=== PATIENT | female | born 1995 | race African-American/Black ===

== ENCOUNTER 2019-04-12 07:50 | Emergency (ER) | END 2019-04-12 08:06 | disposition left against medical advice (07) | LOC: ER 07:50 | DX: Z53.21 Procedure and treatment not carried out due to patient leaving prior to being seen by health care provider (principal); K08.89 Other specified disorders of teeth and supporting structures ==

== ENCOUNTER 2020-04-04 03:09 | Emergency (ER) | payer OTHER ==
[2020-04-04] MEDS ORDERED: DIPHENHYDRAMINE HCL 25 MG CAPSULE PO ONE (04:36)
[2020-04-04] MEDS ORDERED: FAMOTIDINE 20 MG TABLET PO ONE (04:36)
[2020-04-04] MEDS ORDERED: PREDNISONE 20 MG TABLET PO ONE (04:36)
--- NOTE | 2020-04-04 04:42 | ER Document Report ---
ED General - General Chief Complaint: Hives Stated Complaint: POSSIBLE ALLERGIC REACTION Time Seen by Provider: 04/04/20 04:25 Primary Care Provider: BRIANNE CORLEY MD [HONORARY] - Follow up as needed TRAVEL OUTSIDE OF THE [place] IN LAST 30 DAYS: No - HPI Context: This is a 24-year-old female presenting to the emergency department with a chief complaint of hives and urticaria. Patient states symptoms started approximately a day and a half ago after she applied a body lotion to her skin that was different from the one and she usually uses. Patient states she has been trying to manage symptoms with Benadryl cream without success. Patient states nothing alleviates the symptoms and nothing exacerbates the symptoms. Patient denies sensation of throat swelling or trouble breathing. Patient denies fever, chills, history of Covid infection, known exposure to Covid positive persons or known exposure to persons under investigation for COVID-19. Associated symptoms: Other - See HPI Exacerbated by: Other - See HPI Relieved by: Other - See HPI - Related Data Allergies/Adverse Reactions: No Known Allergies Allergy (Unverified 04/12/19 07:59) Past Medical History - General Information source: Patient - Social History Smoking Status: Never Smoker Family History: Reviewed & Not Pertinent Patient has suicidal ideation: No Patient has homicidal ideation: No Review of Systems - Review of Systems Constitutional: No symptoms reported EENT: No symptoms reported Cardiovascular: No symptoms reported Respiratory: No symptoms reported Gastrointestinal: No symptoms reported Genitourinary: No symptoms reported Female Genitourinary: No symptoms reported Musculoskeletal: No symptoms reported Skin: See HPI Hematologic/Lymphatic: No symptoms reported Neurological/Psychological: No symptoms reported -: Yes All other systems reviewed and negative Physical Exam - Vital signs Vitals: Temp Pulse Resp BP Pulse Ox 98.2 F 68 18 117/59 L 100 04/04/20 03:20 04/04/20 03:20 04/04/20 03:20 04/04/20 03:20 04/04/20 03:20 - Notes Notes: CONSTITUTIONAL [Vital signs reviewed, Patient appears comfortable, Alert and oriented X 3, Normal stature.] HEAD [Atraumatic, Normocephalic.] EYES [Eyes are normal to inspection, No discharge from eyes, Extraocular muscles intact, Sclera are normal, Conjunctiva are normal.] ENT [Ears normal to inspection, Nose examination normal, Posterior pharynx normal, Mouth normal to inspection. No stridor is present] NECK [Normal ROM, No jugular venous distention, No meningeal signs, no carotid bruit.] RESPIRATORY CHEST [Chest is nontender, Breath sounds normal, No respiratory distress.] CARDIOVASCULAR [RRR, No murmurs, Normal S1 S2, No rub, No gallop.] ABDOMEN [Abdomen is nontender, No pulsatile masses, No other masses, Bowel sounds normal, No distension, No peritoneal signs, No hernias.] BACK [There is no CVA Tenderness, There is no tenderness to palpation, Normal inspection.] UPPER EXTREMITY [Inspection normal, No cyanosis, No clubbing, No edema, 2+ radial pulses.] LOWER EXTREMITY [Inspection normal, No cyanosis, No clubbing, No edema, No calf tenderness, 2+ femoral pulses.] NEURO [No focal motor deficits, No focal sensory deficits, Speech normal.] SKIN [Skin is warm, Skin is dry, Skin is normal color.] PSYCHIATRIC [Normal affect. ] Course - Re-evaluation Re-evalutation: 04/04/20 04:41 Diagnosis, plan of care discussed with patient. All questions were answered prior to discharge. Emergency signs and symptoms, reasons to return to the emergency department discussed with patient. - Vital Signs Vital signs: Temp Pulse Resp BP Pulse Ox 98.2 F 68 18 117/59 L 100 04/04/20 03:20 04/04/20 03:20 04/04/20 03:20 04/04/20 03:20 04/04/20 03:20 Discharge - Discharge Clinical Impression: Acute allergic reaction Qualifiers: Encounter type: initial encounter Qualified Code(s): T78.40XA - Allergy, unspecified, initial encounter Condition: Stable Disposition: HOME, SELF-CARE Additional Instructions: Return to the Emergency Department without delay if any worse. You can nut picker some Benadryl tablets from your local grocery store pharmacy and use as directed as needed for itching. HOME CARE INSTRUCTIONS & INFORMATION: Thank you for choosing us for your medical needs. We hope you're satisfied with the care you received. After you leave, you must properly care for your problem and, at the same time, observe its progress. Any condition can change. Some illnesses can change rapidly over hours or days. If your condition worsens, return to the Emergency Department or see your physician promptly. ABOUT YOUR X-RAYS AND EKG'S: If you had an EKG or X-rays taken, they have been read by the Emergency Physician. The X-rays and EKG's will also be read by a Radiologist or Ladle Repairer within 24 hours. If discrepancies are noted, you will be notified by telephone. Please be certain the ED has a correct telephone number & address where you can be reached. Also, realize that some fractures or abnormalities do not show up on initial X-rays. If your symptoms continue, see your physician. ABOUT YOUR LABORATORY TEST: If you had laboratory tests, the results have been reviewed by the Emergency Physician. Some test results (for example cultures) may not be available for several days. You will be contacted if any test result shows you need additional treatment. Please be certain the ED has a correct telephone number and address where you can be reached. ABOUT YOUR MEDICATIONS: You will receive instructions on how to take your medicine on the prescription label you receive. Additional information may be provided by the Pharmacy. If you have questions afterwards, call the ED for clarification or further instructions. Some prescribed medications may cause drowsiness. Do not perform tasks such as driving a car or operating machinery without consulting your Pharmacist. If you feel you need a refill of pain medication, your condition will need re-evaluation. Please do not call for a refill of any medication. ABOUT YOUR SIGNATURE: Signature of this document acknowledges to followin. Understanding that you received emergency treatment and that you may be released before al medical problems are known or treated. Please be certain the ED has a correct phone number & address where you can be reached. 2. Acknowledgement that you will arrange for follow-up care as recommended. 3. Authorization for the Emergency Physician to provide information to your follow-up Physician in order to maximize your care. AT ANY TIME, IF YOUR SYMPTOMS CHANGE SIGNIFICANTLY OR WORSEN OR YOU DEVELOP NEW SYMPTOMS, RETURN TO THE EMERGENCY DEPARTMENT IMMEDIATELY FOR RE-EVALUATION. OUR GOAL IS TO PROVIDE EXCELLENT MEDICAL CARE! WE HOPE THAT WE HAVE MET YOUR EXPECTATIONS DURING YOUR EMERGENCY DEPARTMENT VISIT AND THAT YOU FEEL YOU HAVE RECEIVED EXCELLENT CARE! Acute Allergic Reaction Your symptoms are due to an allergic reaction. Allergy can cause hives, swelling of the hands, feet, and face, hoarseness, and difficulty swallowing or breathing. It may be due to exposure to medication, animal dander, foods, infection, or insect bites. Medication is a common cause, even when prior use of this same medication caused no problems. Acute treatment may include adrenalin and antihistamines. Usually, the specific allergic agent can't be identified unless repeated episodes occur. Home treatment includes the following: (1) Stop any suspicious medications. This will be discussed with you. (2) Oral antihistamines for the next four to five days. Example, diphenhydramine (Benadryl) every four hours. (3) You may also use cimetidine (Tagamet), or famotidine (Pepcid) every four hours if diphenhydramine is not controlling itching and hives. (4) Avoid aspirin until the hives completely disappear. (5) Avoid hot baths or showers until the hives are completely gone. Call the doctor if faintness, difficulty swallowing, tightness in the chest, or wheezing occurs. Referrals: BRIANNE CORLEY MD [HONORARY] - Follow up as needed
[2020-04-04 04:52] VITALS: BP 120/64
== END 2020-04-04 04:52 | disposition home or self-care (01) ==
LOC: ER 03:09
DX: T78.40XA Allergy, unspecified, initial encounter (principal); L50.9 Urticaria, unspecified; X58.XXXA Exposure to other specified factors, initial encounter
CPT/HCPCS: 99283; J7512

== ENCOUNTER 2020-04-19 04:34 | Emergency (ER) | payer OTHER ==
[2020-04-19] MEDS ORDERED: LIDOCAINE 1%/EPINEPHRINE INJ 20 ML VIAL INJ ONE (05:13)
--- NOTE | 2020-04-19 05:33 | ER Document Report ---
ED Wound - General Chief Complaint: Laceration Stated Complaint: ANKLE INJURY Time Seen by Provider: 04/19/20 05:04 Notes: Patient is a 24-year-old female that comes to the emergency department for chief complaint of injury to the right inner ankle. Patient states she was out in the yard hanging something on her fence when she accidentally stepped on glass. She states this caused a laceration to her inner ankle which is fairly large and bl ed somewhat heavily. She denies any other complaints. Tetanus is up-to-date within 5 years. Patient has , denies any blood thinners, denies any diagnosed medical history or daily medications. TRAVEL OUTSIDE OF THE [place] IN LAST 30 DAYS: No - Related Data Allergies/Adverse Reactions: No Known Allergies Allergy (Unverified 04/12/19 07:59) Past Medical History - General Information source: Patient - Social History Smoking Status: Never Smoker Frequency of alcohol use: None Drug Abuse: None Lives with: Family Family History: Reviewed & Not Pertinent Patient has homicidal ideation: No - Immunizations Immunizations up to date: Yes Hx Diphtheria, Pertussis, Tetanus Vaccination: Yes Review of Systems - Review of Systems Constitutional: No symptoms reported EENT: No symptoms reported Cardiovascular: No symptoms reported Respiratory: No symptoms reported Gastrointestinal: No symptoms reported Genitourinary: No symptoms reported Female Genitourinary: No symptoms reported Musculoskeletal: See HPI Skin: No symptoms reported Hematologic/Lymphatic: No symptoms reported Neurological/Psychological: No symptoms reported Physical Exam - Vital signs Vitals: Temp Pulse Resp BP Pulse Ox 98.3 F 72 14 113/69 100 04/19/20 04:40 04/19/20 04:40 04/19/20 04:40 04/19/20 04:40 04/19/20 04:40 - Notes Notes: GENERAL: Alert, interacts well. No acute distress. HEAD: Normocephalic, atraumatic. EYES: Pupils equal, round, and reactive to light. Extraocular movements intact. ENT: Oral mucosa moist, tongue midline. Oropharynx unremarkable. Airway patent. NECK: Full range of motion. Supple. Trachea midline. No lymphadenopathy. LUNGS: Clear to auscultation bilaterally, no wheezes, rales, or rhonchi. No respiratory distress. Non-tender chest wall. HEART: Regular rate and rhythm. No murmur EXTREMITIES: There is a 5.5 cm irregular laceration over the right medial ankle above the medial malleolus. This is full-thickness into the subcutaneous tissue with a small amount of muscle visible. However patient performs full range of motion of the ankle without any difficulty, this is easily explored and I do not see any large vessel, nerve, or tendon injury. There is normal foot examination including normal range of motion, sensation, capillary refill. No swelling or signs of trauma otherwise. Normal extremities otherwise. BACK: no cervical, thoracic, lumbar midline tenderness. No saddle anesthesia, normal distal neurovascular exam. Moves all extremities in full range of motion. NEUROLOGICAL: Alert and oriented x3. Normal speech. Cranial nerves II through XII grossly intact. Strength 5/5 in all extremities. PSYCH: Normal affect, normal mood. SKIN: Warm, dry, normal turgor. No rashes or lesions noted. Course - Re-evaluation Re-evalutation: X-ray negative for radiopaque foreign body or concerning finding. The area was flushed thoroughly after the thorough cleansing, explored carefully, subcuticula r area approximated, wound sutured superficially. I did discuss with Dr. Chapin. I discussed care, placed on Keflex prophylaxis, discussed return precautions. Patient states understanding and agreement. - Vital Signs Vital signs: Temp Pulse Resp BP Pulse Ox 98.3 F 61 18 101/64 99 04/19/20 07:00 04/19/20 07:00 04/19/20 07:00 04/19/20 07:00 04/19/20 07:00 Procedures - Laceration/Wound Repair Right medial ankle Wound length (cm): 5.5 Wound's Depth, Shape: Irregular, Flap Laceration pre-procedure: Sterile PPE donned, Sterile drapes applied, Shur-Clens applied Anesthetic type: 1% Lidocaine w/epi Volume Anesthetic (mLs): 7 Wound explored: Clean, No foreign body removed Irrigated w/ Saline (mLs): 100 Wound Repaired With: Sutures Suture Size/Type: 4:0, Ethilon Number of Sutures: 11 Layer Closure?: Yes Deep Layer Suture Size/Type: 5:0, Other - Vicryl Number Deep Layer Sutures: 5 Post-procedure wound care: Sterile dressing applied Post-procedure NV exam normal: Yes Complications: No Discharge - Discharge Clinical Impression: Laceration of right ankle Qualifiers: Encounter type: initial encounter Qualified Code(s): S91.011A - Laceration without foreign body, right ankle, initial encounter Condition: Stable Disposition: HOME, SELF-CARE Additional Instructions: The wound was repaired with sutures. The sutures underneath will dissolve, the sutures on top need to be removed in 7 to 10 days at a medical facility. Keep clean, clean with soap and water, dab dry, avoid soaking or scrubbing. You can apply a thin film of topical antibiotic with a nonadhesive dressing. Take the antibiotic as prescribed to completion. I recommend taking an anti- inflammatory such as ibuprofen for pain. Return sooner for any concerning symptoms including signs of infection such as developing pain, swelling, redness, discolored discharge, fever, or any other concerning symptoms. Prescriptions: Cephalexin Monohydrate [Keflex 500 mg Capsule] 500 mg PO TID 5 Days #15 capsule
[2020-04-19 07:01] VITALS: BP 101/64
--- NOTE | 2020-04-19 07:18 | RADIOLOGY REPORT (SQ) ---
EXAM: ANKLE RIGHT AP/LATERAL CLINICAL DATA: 24 years Female ? gLASS FOREIGN BODY TECHNICAL DATA: Two x-ray views of the right ankle were performed on 04/19/2020 at 5:24 AM. COMPARISONS: None FINDINGS: There is no evidence of fracture or dislocation. There is no significant arthritis or degenerative change. No focal lytic or sclerotic bone lesions are seen. Bone mineralization is normal. There is soft tissue injury just above the medial malleolus. No definite radiopaque foreign body is identified. IMPRESSION: No evidence of acute osseous injury involving the right ankle. There is a soft tissue injury just above the medial malleolus. No definite radiopaque foreign body is identified.
== END 2020-04-19 07:13 | disposition home or self-care (01) ==
LOC: ER 04:34
DX: S91.011A Laceration without foreign body, right ankle, initial encounter (principal); W25.XXXA Contact with sharp glass, initial encounter; Y92.007 Garden or yard of unspecified non-institutional (private) residence as the place of occurrence of the external cause
CPT/HCPCS: 99283; 73600; 12002; J3490

== ENCOUNTER 2020-05-06 17:59 | Emergency (ER) | payer OTHER ==
--- NOTE | 2020-05-06 18:58 | ER Document Report ---
HPI - HPI Patient complains to provider of: Suture removal Time Seen by Provider: 05/06/20 18:52 Pain Level: Denies Notes: 24-year-old female to the emergency department with complaints of needing suture removal to her right ankle. She had the sutures placed about a week and a half ago. She states that it is been doing well and now the sutures are actually starting to itch. She denies any redness, pain, purulent discharge. She states that she did this while she was stepping through a glass tank and it broke. She did take antibiotics and she has completed these. She denies any other complaints today. - CONSTITUTIONAL Constitutional: DENIES: Fever, Chills - EENT EENT: DENIES: Sore Throat, Ear Pain, Congestion - NEURO Neurology: DENIES: Headache, Weakness - CARDIOVASCULAR Cardiovascular: DENIES: Chest pain - RESPIRATORY Respiratory: DENIES: Trouble Breathing, Coughing - GASTROINTESTINAL Gastrointestinal: DENIES: Abdominal Pain, Nausea, Patient vomiting, Diarrhea - REPRODUCTIVE Reproductive: DENIES: : - MUSCULOSKELETAL Musculoskeletal: DENIES: Extremity pain, Back Pain - DERM Skin Color: Normal Skin Problems: Laceration - Suture laceration to the right ankle Past Medical History - General Information source: Patient - Social History Smoking Status: Current Every Day Smoker Chew tobacco use (# tins/day): No Frequency of alcohol use: None Drug Abuse: None Family History: Reviewed & Not Pertinent - Immunizations Immunizations up to date: Yes Hx Diphtheria, Pertussis, Tetanus Vaccination: Yes Vertical Provider Document - CONSTITUTIONAL Agree With Documented VS: Yes Exam Limitations: No Limitations General Appearance: WD/WN, No Apparent Distress - INFECTION CONTROL TRAVEL OUTSIDE OF THE [place] IN LAST 30 DAYS: No - HEENT HEENT: Atraumatic, Normocephalic, PERRLA - NECK Neck: Normal Inspection, Supple - RESPIRATORY Respiratory: Breath Sounds Normal, No Respiratory Distress. negative: Rales, R honchi, Wheezing - CARDIOVASCULAR Cardiovascular: Regular Rate, Regular Rhythm, No Murmur - GI/ABDOMEN Gastrointestinal: Abdomen Soft, Abdomen Non-Tender, No Organomegaly - NEURO Level of Consciousness: Awake, Alert, Appropriate - DERM Integumentary: Warm, Dry Notes: There is a healing laceration to the medial aspect of the left ankle. It appears to be healing well with no wound dehiscence, redness, swelling, purulent discharge. Patient has full range of motion of the ankle with 5 out of 5 strength against resistance in dorsiflexion and plantar flexion. She is nontender to palpation to the right knee and right hip. Course - Re-evaluation Re-evalutation: 05/06/20 Impression: Suture removal. 11 sutures were removed from the ankle. Steri- Strips were applied. We will discharge the patient home. Primary care follow- up. - Vital Signs Vital signs: Temp Pulse Resp BP Pulse Ox 98.1 F 67 16 110/58 L 100 05/06/20 18:06 05/06/20 18:06 05/06/20 18:06 05/06/20 18:06 05/06/20 18:06 Discharge - Discharge Clinical Impression: Visit for suture removal Condition: Stable Disposition: HOME, SELF-CARE Instructions: Suture Removal Additional Instructions: Allow Steri-Strips to fall off on their own. Monitor for any worsening pain, fevers, redness, swelling. Keep the wound covered during the day while it is in your shoe and sock but you may have it open to air at night. Referrals: [facility] [Provider Group] - Follow up as needed
[2020-05-06 19:09] VITALS: BP 120/67
== END 2020-05-06 19:09 | disposition home or self-care (01) ==
LOC: ER 17:59
DX: S91.011D Laceration without foreign body, right ankle, subsequent encounter (principal); W25.XXXD Contact with sharp glass, subsequent encounter; F17.200 Nicotine dependence, unspecified, uncomplicated
CPT/HCPCS: 99281